=== PATIENT | female | born 1995 | race Two or more races ===

== ENCOUNTER 2019-04-07 19:49 | Emergency (ER) | payer OTHER ==
[~2019-04-07] VITALS: Ht 160 cm; Wt 90.7 kg
[2019-04-07] MEDS ORDERED: fentaNYL PF VIAL 100 MCG/2 ML VIAL IV ONE (20:15)
[2019-04-07 20:28] LABS: BASO # 0.1 x10^3/uL (0.0-0.2); BASO % 1 % (0-3); EOS % 0 % (0-3); HEMATOCRIT 37.6 % (36.0-47.0); HEMOGLOBIN 12.6 g/dL (12.0-15.5); LYMPH # 2.1 x10^3/uL (1.0-4.8); LYMPH % 21 % (24-48); MEAN CORPUSCULAR HEMOGLOBIN 26 pg (25-35); MEAN CORPUSCULAR HGB CONC 34 g/dL (31-37); MEAN CORPUSCULAR VOLUME 77 fL (79-100); MONO # 0.5 x10^3/uL (0.0-1.1); MONO % 5 % (0-9); NEUT # 7.4 x10^3/uL (1.8-7.7); NEUT % 73 % (31-73); PLATELET COUNT 231 x10^3/uL (140-400); RED BLOOD COUNT 4.89 x10^6/uL (3.50-5.40); RED CELL DISTRIBUTION WIDTH 15.2 % (11.5-14.5); WHITE BLOOD COUNT 10.1 x10^3/uL (4.0-11.0)
[2019-04-07 20:34] LABS: BILIRUBIN,URINE NEGATIVE (NEG); CLARITY,URINE CLOUDY; COLOR,URINE YELLOW; NITRITE,URINE NEGATIVE (NEG); PH,URINE 6.5; PROTEIN,URINE NEGATIVE (NEG-TRACE); UROBILINOGEN,URINE 0.2 mg/dL (0.2 mg/dL)
[2019-04-07 20:36] LABS: CALCIUM 8.8 mg/dL (8.5-10.1); CREATININE 0.7 mg/dL (0.6-1.0); GFR 105.6; POTASSIUM 3.3 mmol/L (3.5-5.1)
[2019-04-07 20:42] LABS: ALBUMIN 3.5 g/dL (3.4-5.0); ALBUMIN/GLOBULIN RATIO 0.9 (1.0-1.7); TOTAL BILIRUBIN 0.4 mg/dL (0.2-1.0); TOTAL PROTEIN 7.2 g/dL (6.4-8.2)
[2019-04-07 20:45] LABS: BACTERIA,URINE FEW /HPF (0-FEW); SQUAMOUS EPITHELIAL CELL,UR OCC /LPF
[2019-04-07] MEDS ORDERED: IOHEXOL 300 MG/ML 100ML VIAL. IV ONE (20:45)
[2019-04-07] MEDS ORDERED: CONTRAST GIVEN. MC PRN (21:00)
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
[2019-04-07] MEDS ORDERED: KETOROLAC 15 MG/ML VIAL. IV ONE (21:45)
[2019-04-07 22:05] VITALS: BP 127/86
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
--- NOTE | 2019-04-09 10:19 | EKG ---
[facility] [address] [place] [address] Test Date: 2019-04-07 Test Time: 19:56:07 Pat Name: IMANI LUQUE Department: Room: Gender: F Uniform Designer: : 1995 Requested By: JEISON BECKHAM Order Number: [id number] Reading MD: Kuldip Cole MD Measurements Intervals Forbes Rate: 72 P: 26 MN: 136 QRS: 27 QRSD: 74 T: 13 QT: 352 QTc: 387 Interpretive Statements SINUS RHYTHM Electronically Signed On 04-09-2019 10:20:26 CDT by Kuldip Cole MD
== END 2019-04-07 22:10 | disposition home or self-care (01) ==
LOC: ER 19:49
DX: R10.84 Generalized abdominal pain (principal); M54.2 Cervicalgia; R07.89 Other chest pain; R51 Headache; M54.5 Low back pain; Z90.89 Acquired absence of other organs; V43.62XA Car passenger injured in collision with other type car in traffic accident, initial encounter; Y93.89 Activity, other specified; Y92.410 Unspecified street and highway as the place of occurrence of the external cause; Y99.8 Other external cause status
CPT/HCPCS: 36415; 70450; 71045; 72125; 74177; 80053; 81001; 81025; 85025; 93005; 96374; 99285; J3010; Q9967